=== PATIENT | male | born 1980 ===

== ENCOUNTER → 2020-11-07 13:50 | Outpatient (BNVA) | payer OTHER, SELFPAY | PROVIDERS: Family Provider Family Medicine; PCP Family Medicine; Visit Provider Surgery | DX: Z20.828 Contact with and (suspected) exposure to other viral communicable diseases (principal); Z01.812 Encounter for preprocedural laboratory examination | CPT/HCPCS: 87635 ==

== ENCOUNTER 2020-11-13 06:08 | Day surgery (SDC) | payer OTHER, SELFPAY ==
[2020-11-13] VITALS (8 sets, daily range): BP systolic 111–145; BP diastolic 69–97; PULSE 57–92; RESP 12–18; TEMP 36.7–36.9; O2SAT 96–99; BMI 24.4
--- NOTE | 2020-11-13 06:34 | W.PM.OPSUD ---
Surgery/Procedure H&P Update DATE OF PROCEDURE: November 13, 2020 DATE H&P PERFORMED: 10/28/20 H&P UPDATE INFORMATION: No changes to prior documentation PLANNED PROCEDURE: Operation Date: 11/13/20 07:50 Proposed Procedures p Hemorroidectomy 38681 K92.1(Not Applicable) - Amilcar Jacinto MD
[2020-11-13] MEDS: sodium chloride 0.9% 1,000 ML 30 ML IV (06:40)
--- NOTE | 2020-11-13 06:54 | ANES.PREANE2 ---
Pre-Anesthetic Assessment Pre-Anesthetic Assessment: Height/Weight: Height 1.8 m Weight 79.379 kg Temp Pulse Resp BP Pulse Ox 98.4 F 57 L 18 130/92 98 11/13/20 06:28 11/13/20 06:28 11/13/20 06:28 11/13/20 06:28 11/13/20 06:28 Proposed Procedure: Operation Date: 11/13/20 07:50 Proposed Procedures p Hemorroidectomy 51047 K92.1(Not Applicable) - Amilcar Jacinto MD Was Beta Shellie taken within 24 hours: N/A Last intake: Intake Last Liquid Date 11/12/20 Last Liquid Time 19:00 Last Solid Date 11/12/20 Last Solid Time 19:00 Social: Social History: Tobacco and No alcohol Exam: Pre-Anes Outpt Exam: alert, oriented x 3, clear to auscultation bilaterally and regular rate & rhythm Airway: Submandibular: WNL Cervical ROM: WNL MP: 2 Dentition: Full Pulmonary: Pulmonary: None reported CV/HEM: CV/HEM: None reported : : None reported Hepatic: Hepatic: None reported GI: GI: None reported Metabolic: Metabolic: None reported Musc/skel: Musc/skel: None reported Neuropsych: Neuropsych: None reported Anesthetic Plan: ASA status: 2 Anesthesia: General Risk of > 500 ml blood loss (7ml/kg in children): No Meds/Allergies Current Medications: Current Medications Generic Name Dose Route Start Last Admin Trade Name Freq PRN Reason Stop Dose Admin Sodium Chloride 1,000 mls @ 30 ml s/hr 11/13/20 06:30 11/13/20 06:40 Sodium Chloride 0.9% IV 11/14/20 06:29 30 mls/hr .Q24H COOPER Administration Data Anesthesia Cardiac Studies: No Data to Display
[2020-11-13] MEDS: metroNIDAZOLE IV 500 MG/100 ML PREMIX 100 MG IV (07:59)
--- NOTE | 2020-11-13 08:16 | PM.OP ---
Operative Report Date of procedure: November 13, 2020 Pre-op Diagnosis: Hematochezia, hemorrhoids. Post-op diagnosis: same Procedure Done: Exam under anesthesia with hemorrhoidectomy. Specimens removed/disposition: Hemorrhoids. Surgeon: Amilcar Jacinto Anesthesia: General Estimated blood loss (mL): 5 Complications: None. Condition: stable Disposition: PACU Procedure: The patient was brought to the operating room and was placed in a supine position on the operating room table. General anesthesia was induced by means of a laryngeal mask airway. The patient was then moved to a left lateral decubitus position on the table. The perianal region was prepped and draped in a sterile fashion. An exam under anesthesia was then carried out using a Walker rectal retractor. The patient had multiple hemorrhoidal complexes which were mildly excoriated. The largest of these were in the lateral and anterior positions. The hemorrhoids were sequentially grasped with an Allis clamp and were removed using the Voyant energy device. The anal sphincters were then gently dilated to approximately 2-1/2 finger breaths. A combination of 0.5% bupivacaine and 2% lidocaine with 1-100,000 parts epinephrine was instilled for postoperative anesthesia. A Vaseline coated piece of gauze and some fluff dressings were used as anal packing and then a superficial fluff dressing was placed. The patient was taken to the recovery room in stable condition postoperatively.
--- NOTE | 2020-11-13 09:13 | SUR.PHASEI ---
0830- ORAL AIRWAY REMOVED, SIMPLE MASK AT 6LPM SAT 97%
[2020-11-13] MEDS: oxyCODONE-APAP 5-325 mg Tablet 1 TAB PO (09:18)
--- NOTE | 2020-11-13 10:27 | ANE.PACU2 ---
Inpatient post-anesthesia follow up: Airway intact: Yes Vital signs: Temperature 98.4 F Pulse Rate 86 Respiratory Rate 18 Blood Pressure 127/96 Pulse Oximetry 98 Oxygen Delivery Me thod Room Air Oxygen Flow Rate 6 Fraction of Inspir ed Oxygen Hydration adequate: Yes Nausea and vomiting: No Pain level: 2 Mental status: Baseline
== END 2020-11-13 09:22 | disposition home or self-care (01) ==
PROVIDERS: Family Provider Family Medicine; PCP Family Medicine; Visit Provider Surgery
PROC: (CPT 46260; principal; 2020-11-13 07:50)
DX: K64.8 Other hemorrhoids (principal); K92.1 Melena; Z87.891 Personal history of nicotine dependence
CPT/HCPCS: 46260; 12345; 88304; J0330; J0690; J2704; J3010; J3490; J7030; S0030